=== PATIENT | male | born 1945 | race Caucasian/White ===

== ENCOUNTER 2024-04-18 08:48 | Outpatient (RCR) | payer MEDICARE, SELFPAY | END 2024-04-29 23:59 | disposition home or self-care (01) | LOC: SCTC 08:48 | PROVIDERS: PCP Nurse Practitioner Family; Referring Provider Nurse Practitioner Family; Visit Provider Radiology Therapeutic Radiology | DX: Z51.11 Encounter for antineoplastic chemotherapy (principal); C61 Malignant neoplasm of prostate; C79.51 Secondary malignant neoplasm of bone; N28.89 Other specified disorders of kidney and ureter | CPT/HCPCS: 36591; 96402; 99424; 99425; J9217 ==

== ENCOUNTER → 2024-04-21 | Outpatient (BNVA) | payer MEDICARE, SELFPAY | END | disposition home or self-care (01) | PROVIDERS: PCP Nurse Practitioner Family; Referring Provider Nurse Practitioner Family; Visit Provider Nurse Practitioner Family | DX: C61 Malignant neoplasm of prostate (principal); Z01.810 Encounter for preprocedural cardiovascular examination ==

== ENCOUNTER → 2024-05-02 | Outpatient (BNVA) | payer MEDICARE, SELFPAY | END | disposition home or self-care (01) | PROVIDERS: PCP Nurse Practitioner Family; Referring Provider Nurse Practitioner Family; Visit Provider Urology | DX: N35.919 Unspecified urethral stricture, male, unspecified site (principal); N32.89 Other specified disorders of bladder; C61 Malignant neoplasm of prostate; C64.2 Malignant neoplasm of left kidney, except renal pelvis | CPT/HCPCS: 52000; 81003; 96372; 99211; A4217; A4649; C1894; J3260; A9270; G0463 ==

== ENCOUNTER → 2024-05-15 | Outpatient (BNVA) | payer MEDICARE, SELFPAY | END | disposition home or self-care (01) | PROVIDERS: PCP Nurse Practitioner Family; Referring Provider Nurse Practitioner Family; Visit Provider Nurse Practitioner Family | DX: C61 Malignant neoplasm of prostate (principal); C64.9 Malignant neoplasm of unspecified kidney, except renal pelvis; R33.9 Retention of urine, unspecified; Z09 Encounter for follow-up examination after completed treatment for conditions other than malignant neoplasm ==

== ENCOUNTER → 2024-06-29 | Outpatient (BNVA) | payer MEDICARE, SELFPAY | END | disposition home or self-care (01) | PROVIDERS: PCP Nurse Practitioner Family; Referring Provider Nurse Practitioner Family; Visit Provider Nurse Practitioner Family | DX: C61 Malignant neoplasm of prostate (principal) ==

== ENCOUNTER 2024-07-27 08:54 | Outpatient (RCR) | payer MEDICARE, SELFPAY ==
--- NOTE | 2024-07-05 10:09 | CTCFLWUP_ITS ---
[facility] [address] [place], [place] [address] FOLLOW-UP NOTE Date: 07/04/2024 MR#: [id number] Name: JOHN CARTWRIGHT : Dx: C61 Malignant neoplasm of prostate Identification. Patient with prostate CA, with elevated PSA of 41 on 01/06/2024 with biopsy 03/13/2024 revealing group 4 and group 5 involving both right and left portion of the prostate. Bone scan 03/16/2024 showed extensive metastatic disease involving cervical thoracic lumbar spine pelvic bones. Patient now seeing Dr. Shefali Benoit who reportedly is ordering MRI and following him for his prostate cancer. Had left nephrectomy performed at [facility]. By Dr. 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 3 lymph nodes negative for renal cell CA. [id number]. No adjuvant therapy recommended. Patient was started on Casodex to prevent a flare reaction and Lupron injections was initiated 04/03/2024. Patient's PSA 06/29/2024 0.2 A#!. Prostate CA group 4 and 5 biopsy 03/13/2024 with PSA 41 and widespread bony mets. A#2. Excellent response to 1 injection of ADT Lupron, preceded by Casodex to prevent flare reaction. Patient also has no pain. PSA has dropped to 0.2 most recently. A#3. Recommend patient see Dr. Willis for second-generation antiandrogen and Xgeva along with Lupron. Referral made. A#4. Left nephrectomy stage I grade 2 [id number] performed at [facility] by Dr. Portillo from [facility] no adjuvant therapy recommended. A#5. Patient stated that Dr. Shefali Benoit now following patient for prostate cancer and recommended continuation with hormone manipulation at the local cancer treatment center. MRI of the spine pelvis reportedly has been ordered and pending. A#6. I will see patient again in 2 months time Electronically signed by: Scott Guardado M.D. 07/05/2024 10:07 AM
--- NOTE | 2024-07-27 18:28 | CTCCONSULT_ITS ---
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 patient is doing well. He took casodex for about a month before receiving Lupron. His back pain is resolved . He is very concerned for his urinary symptoms. OTHER MEDICAL HISTORY/CONDITIONS: PROSTATE CANCER CLEAR CELL RENAL CARCINOMA LEFT KIDNEY NEPHRECTOMY LEFT?NEPHRECTOMY?05/04/24?[facility] FAMILY HISTORY: Father:?DENIES?FATHER?CARDIAC?ISSUES Mother:?DENIES Sibling:?DENIES Children:?DENIES Cancer History:?PROSTATE CANCER, HX CLEAR CELL RENAL CARCINOMA Patient?denies?family?cancer?history. SOCIAL HISTORY: Occupational?History:?RETIRED?[employer] Education?Level:?Completed High School Marital?Status:? Tobacco?Pack?per?Day:?0 Tobacco?Use?Years:?30 Tobacco Use:?STOPPED SMOKING 45 YEARS AGO ETOH Use:?OCCASIONAL BEER EVERY 6 MONTHS Drug?Note:?DENIES Social History Note:?LIVES WITH DAUGHTER MEDICATIONS: 1. Casodex - 50 mg 1 tab Daily 2. Casodex - 50 mg Daily 3. traMADol - 50 mg 1 tab q6 4. Xtandi - 80 mg 2 tab 2 tabs Daily Medications Last Reconciled by January Melgar MD on 07/27/2024 ALLERGIES: No Known Allergies REVIEW OF SYSTEMS: A complete 14-point review of systems was performed and is negative except as noted in interval history. PHYSICAL EXAMINATION: VITAL SIGNS: Temperature?97.8, B/P?104/73, Height?69?inches, Oxygen?Saturation?98% Weight?218?lbs (Change?since?07/05/24:?0?lbs) PAIN: 0 - No pain ECOG Performance Status: 0 - Asymptomatic and fully active GENERAL APPEARANCE: Appears well, in no apparent distress, appropriately interactive. HEENT: Normocephalic, no temporal wasting, normal conjunctiva, no scleral icterus, normal hearing, lips without lesions, neck normal range of motion. CARDIOVASCULAR: Not assessed. PULMONARY: Normal respiratory effort, no respiratory distress or use of accessory muscles, speaking in full sentences, no tachypnea. EXTREMITIES: No pedal edema or cyanosis. SKIN: Normal skin appearance. NEUROLOGIC: Alert and oriented x4. PSHYCHIATRIC: Appropriate affect, mood normal, behavior normal, intact thought and speech. LABORATORY DATA: I have personally reviewed and interpreted each of the patient?s relevant lab tests, abnormal findings are below: Date ASSESSMENT/PLAN: Metastatic prostatic cancer Stage 4 for prostatic cancer PSA from 41 to less than 1 Cont Lupron Xtandi 160 mg daily Calcium and vit [id number] zometa once cleared by dentist ORDERS: Cbc,cmp,psa RETURN TO CLINIC: 2 months BILLING AND COMPLIANCE: I reviewed external records from providers outside my specialty as summarized above. I spent a total of 50 minutes on this patient?s care on the day of their visit excluding time spent related to any billed procedures. This time includes time spent with the patient as well as time spent documenting in the medical record, reviewing patients records and tests, obtaining history, placing orders, communicating with other healthcare professionals, counseling the patient, family or caregiver, and/or care coordination for the diagnoses above. Electronically Signed by: {Object.Sanct_ID*[email or web address]@M}, {Object.Sanct_ID*PnP.Suffix@U} D: {Object.Sanct_Date} T: {Object.Sanct_Time} CC: PCP: Referring: [facility] Senior Credit OfficerTraci This document was completed utilizing speech recognition software. Grammatical errors, random word insertions, pronoun errors, and incomplete sentences are an occasional consequence of this system due to software limitations, ambient noise, and hardware issues. Any formal questions or concerns about the content, text or information contained within the body of this dictation should be directly addressed to the provider for clarification.
== END 2024-07-28 23:59 | disposition home or self-care (01) ==
LOC: SCTC 08:54
PROVIDERS: PCP Nurse Practitioner Family; Referring Provider Nurse Practitioner Family; Visit Provider Internal Medicine Hematology & Oncology
DX: Z51.11 Encounter for antineoplastic chemotherapy (principal); C61 Malignant neoplasm of prostate; C79.51 Secondary malignant neoplasm of bone; C64.2 Malignant neoplasm of left kidney, except renal pelvis; Z90.5 Acquired absence of kidney; Z79.818 Long term (current) use of other agents affecting estrogen receptors and estrogen levels
CPT/HCPCS: 96402; 99211; 99212; 99213; J9217; G0463

== ENCOUNTER → 2024-08-10 | Outpatient (CLI) | payer MEDICARE, SELFPAY ==
--- NOTE | 2024-08-10 15:21 | XR_ITS ---
Examination: MRI abdomen, without contrast Date and time of exam: August 10, 2024 1611 hrs. Indications: Malignant neoplasm left kidney post surgery 2 months ago, restaging Technique: Multiple axial sagittal and coronal images of the abdomen have been obtained with the Siemens high-resolution 1.5 Kaley MRI scanner. Images obtained include T2-weighted fat-suppressed sagittal sections, TR 3500, TE 46, T2 weighted coronal fat suppressed images, TR 3050, TE 84, T2-weighted transverse fat suppressed images, TR 3260, TE 63, proton density transverse images, TR 4720 TE 46, and T1 weighted coronal images, TR 560, TE 13. Findings: No focal liver or splenic lesions Multiple right renal cysts, the largest in the upper pole 8.3 cm No solid right renal mass lesion is noted on this noncontrast study No ascites Aorta normal size Adequate marrow signal Impression: Absent left kidney No retroperitoneal lymphadenopathy No ascites Multiple right renal cysts
== END | disposition home or self-care (01) ==
LOC: SMRI 14:59
PROVIDERS: PCP Urology; Referring Provider Urology; Visit Provider Urology
DX: N28.1 Cyst of kidney, acquired (principal); Z90.5 Acquired absence of kidney
CPT/HCPCS: 74181

== ENCOUNTER 2024-10-04 11:21 | Outpatient (RCR) | payer MEDICARE, SELFPAY ==
--- NOTE | 2024-10-03 15:27 | CTCFLWUP_ITS ---
[facility] Mcc[facility] [address] [place], [place] [address] FOLLOW-UP NOTE Date: 10/03/2024 MR#: [id number] Name: JOHN CARTWRIGHT : 1945 Dx: C61 Malignant neoplasm of prostate Identification. Patient with prostate CA group 4 and 5 biopsy 03/13/2024 with PSA 41 widespread bone mets. Bone scan 03/16/[address]. [address] abdomen pelvis 03/16/2024 2 mm pulmonary nodule with solid mass central left kidney 5.6 x 5.8 cm consistent with renal neoplasm. Abdominal MRI 04-23 solid mass upper left kidney 6 x 6 x 5.6 cm. Left nephrectomy stage I grade 2 [id number] performed in [facility] 05/04/[address] Portillo at [facility] no adjuvant therapy recommended. A good response with 1 injection of ADT Lupron preceded by Casodex to prevent flare with PSA dropping to 0.2 on 06/30/2024 Currently receiving Xtandi along with Lupron, and receiving calcium and vitamin D under Dr. Willis's direction. Awaiting dental clearance before Zometa will be considered. As patient is reasonably comfortable not needing any pain meds or radiation therapy I will be in the sideline while patient receiving systemic therapy under Dr. Willis's direction. Cc: Dennis Parker MD Electronically signed by: Scott Guardado M.D. 10/03/2024 3:25 PM
== END 2024-10-28 23:59 | disposition home or self-care (01) ==
LOC: SCTC 11:21
PROVIDERS: PCP Urology; Referring Provider Urology; Visit Provider Nurse Practitioner Family
DX: C61 Malignant neoplasm of prostate (principal); C79.51 Secondary malignant neoplasm of bone; C64.2 Malignant neoplasm of left kidney, except renal pelvis; Z79.818 Long term (current) use of other agents affecting estrogen receptors and estrogen levels; Z90.5 Acquired absence of kidney
CPT/HCPCS: 99212; G0463

== ENCOUNTER → 2024-10-31 | Outpatient (CLI) | payer MEDICARE, SELFPAY ==
[2024-10-31 09:51] LABS: Basophils # (Auto) 0.1 Thou/mm3 (0.0-0.2); Basophils % (Auto) 1 % (0-2.5); Eosinophils # (Auto) 0.4 Thou/mm3 (0.0-0.5); Eosinophils % (Auto) 5 % (0-10); Hematocrit 37.6 % (41.0-53.0); Hemoglobin 13.3 g/dL (13.5-16.0); Immature Granulocytes % (Auto) 1 % (0-0); Lymphocytes # (Auto) 1.6 Thou/mm3 (1.0-4.8); Lymphocytes % (Auto) 20 % (10-50); Mean Corpuscular HGB Conc 35.4 g/dl (31.0-37.0); Mean Corpuscular Hemoglobin 28.5 pg (25.0-35.0); Mean Corpuscular Volume 81 fL (80-100); Monocytes # (Auto) 0.7 Thou/mm3 (0.0-0.8); Monocytes % (Auto) 9 % (0-12); Neutrophils # (Auto) 5.2 Thou/mm3 (1.8-7.7); Neutrophils % (Auto) 65 % (37-80); Nucleated Red Blood Cell % 0 /100 WBC (0); Platelet Count 244 Thou/mm3 (140-440); RDW Standard Deviation 41.9 fL (35.1-43.9); Red Blood Count 4.66 Miln/mm3 (4.50-5.90)
[2024-10-31 10:21] LABS: Alanine Aminotransferase 7 U/L (10-49); Albumin, Serum 4.4 gm/dL (3.4-4.8); Albumin/Globulin Ratio 1.6 (1.2-2.2); Alkaline Phosphatase 63 U/L (46-116); Anion Gap 11 (7-16); Aspartate Amino Transferase 16 U/L (0-34); BUN/Creatinine Ratio 10 Ratio (12-20); Bilirubin,Total 0.6 mg/dL (0.3-1.2); Blood Urea Nitrogen 20 mg/dL (9-23); Calcium 10.4 mg/dL (8.3-10.6); Calcium (Corrected) 10.4 mg/dL (8.5-10.1); Carbon Dioxide 23.6 mMol/L (20.0-31.0); Chloride 104 mMol/L (98-107); Globulin 2.7 gm/dL (2.3-3.5); Glucose 100 mg/dL (74-106); Osmolality,Calculated 280 (275-295); Potassium 5.2 mMol/L (3.4-5.1); Sodium 139 mMol/L (136-145); Total Protein 7.1 gm/dL (5.7-8.2); eGFR 34 See Note
[2024-10-31 11:18] LABS: Prostate Specific Antigen < 0.10 ng/mL (0-4.00)
== END | disposition home or self-care (01) ==
PROVIDERS: Referring Provider Nurse Practitioner Family; Visit Provider Nurse Practitioner Family
DX: C61 Malignant neoplasm of prostate (principal)
CPT/HCPCS: 36415; 80053; 84153; 85025

== ENCOUNTER 2024-11-08 11:24 | Outpatient (RCR) | payer MEDICARE, SELFPAY | END 2024-11-27 23:59 | disposition home or self-care (01) | LOC: SCTC 11:24 | PROVIDERS: Referring Provider Nurse Practitioner Family; Visit Provider Nurse Practitioner Family | DX: Z51.11 Encounter for antineoplastic chemotherapy (principal); C61 Malignant neoplasm of prostate; C64.2 Malignant neoplasm of left kidney, except renal pelvis; Z90.5 Acquired absence of kidney | CPT/HCPCS: 96402; 99212; J9217; G0463 ==

== ENCOUNTER → 2024-11-21 | Outpatient (CLI) | payer MEDICARE, SELFPAY ==
--- NOTE | 2024-11-21 09:45 | XR_ITS ---
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
--- NOTE | 2024-11-21 09:45 | XR_ITS ---
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
--- NOTE | 2024-11-21 09:45 | XR_ITS ---
Examination: Lumbar spine, 5 views Technique: Lumbar spine AP, lateral, coned lateral lower lumbar spine, bilateral obliques 5 views Exam date and time: November 21, 2024 1001 hours INDICATIONS: Lower back pain one week, diagnosis malignant neoplasm prostate FINDINGS: Moderate osteopenia Sclerotic foci L4-L5 as well as in the sacrum Numerous sclerotic foci in the iliac bones and left hip Moderate disc narrowing L5-S1 IMPRESSION: Widespread osteoblastic metastatic disease No fracture Moderate degenerative disc disease L5-S1
== END | disposition home or self-care (01) ==
PROVIDERS: PCP Urology; Referring Provider Nurse Practitioner Family; Visit Provider Nurse Practitioner Family
DX: C79.51 Secondary malignant neoplasm of bone (principal); C61 Malignant neoplasm of prostate; M51.379 Other intervertebral disc degeneration, lumbosacral region without mention of lumbar back pain or lower extremity pain; M51.34 Other intervertebral disc degeneration, thoracic region
CPT/HCPCS: 72072; 72110; 73522

== ENCOUNTER → 2024-12-14 | Outpatient (CLI) | payer MEDICARE, SELFPAY ==
[2024-12-14 10:13] LABS: Alanine Aminotransferase < 7 U/L (10-49); Albumin, Serum 4.1 gm/dL (3.4-4.8); Albumin/Globulin Ratio 1.4 (1.2-2.2); Alkaline Phosphatase 68 U/L (46-116); Anion Gap 12 (7-16); Aspartate Amino Transferase 13 U/L (0-34); BUN/Creatinine Ratio 12 Ratio (12-20); Bilirubin,Total 0.6 mg/dL (0.3-1.2); Blood Urea Nitrogen 23 mg/dL (9-23); Calcium 9.6 mg/dL (8.3-10.6); Calcium (Corrected) 9.6 mg/dL (8.5-10.1); Carbon Dioxide 23.2 mMol/L (20.0-31.0); Chloride 109 mMol/L (98-107); Creatinine (Component) 2.0 mg/dL (0.6-1.3); Globulin 2.9 gm/dL (2.3-3.5); Glucose 111 mg/dL (74-106); Osmolality,Calculated 291 (275-295); Potassium 4.4 mMol/L (3.4-5.1); Sodium 144 mMol/L (136-145); Total Protein 7.0 gm/dL (5.7-8.2); eGFR 34 See Note
== END | disposition home or self-care (01) ==
LOC: COPL 08:22
PROVIDERS: PCP Urology; Referring Provider Nurse Practitioner Family; Visit Provider Nurse Practitioner Family
DX: C61 Malignant neoplasm of prostate (principal)
CPT/HCPCS: 36415; 80053

== ENCOUNTER → 2024-12-15 | Outpatient (CLI) | payer MEDICARE, SELFPAY ==
--- NOTE | 2024-12-15 07:45 | XR_ITS ---
Examination: MRI thoracic spine without contrast. Date and time of exam: December 15, 2024 0804 hours INDICATIONS: Diagnosis malignant neoplasm prostate, back pain months Technique: Multiple sagittal and axial images of the thoracic spine have been obtained. T1 weighted localizer, sagittal T2 weighted images, TR 30-50, TE 148, T1 weighted sagittal images, TR 650, TE 14, T2-weighted transverse images, TR 6770, TE 142 Findings: Abnormal signal involving the T7, T8, T9, T10 vertebral bodies consistent with osseous metastatic disease No epidural tumor impinging upon the thoracic cord No localized enlargement thoracic cord Mild to moderate diffuse thoracic disc narrowing Diffuse thoracic disc desiccation Impression: Osseous metastatic disease involving T7, T8, T9, T10 No epidural tumor impinging upon the thoracic cord
--- NOTE | 2024-12-15 08:30 | XR_ITS ---
Examination: MRI lumbar spine without contrast Date and time of exam: December 15, 2024 0833 hours INDICATIONS: Back pain 2 weeks, diagnosis prostate cancer Technique: Multiple MRI axial and sagittal sections lumbar spine. Sagittal T2-weighted images, TR 3500, TE 118 T1 weighted transverse sections, TR 688 T8.5, T2-weighted sagittal sections T1 weighted sagittal sections TR 621, TE 30 T2 axial sections, TR 4, 190, TE 84. Findings: Focal areas of abnormal signal involving L1, L3, L4, first and second and third sacral segments Diffuse lumbar disc desiccation. No epidural tumor impinging upon the conus medullaris or cauda equina Axial images demonstrate focal involvement with osseous metastatic disease iliac bones IMPRESSION: Widespread osseous metastatic disease No epidural tumor impinging upon the conus medullaris or cauda equina
== END | disposition home or self-care (01) ==
PROVIDERS: PCP Urology; Referring Provider Nurse Practitioner Family; Visit Provider Nurse Practitioner Family
DX: C79.49 Secondary malignant neoplasm of other parts of nervous system (principal); C79.9 Secondary malignant neoplasm of unspecified site; C79.51 Secondary malignant neoplasm of bone; C61 Malignant neoplasm of prostate
CPT/HCPCS: 72146; 72148

== ENCOUNTER 2024-12-18 11:06 | Outpatient (RCR) | payer MEDICARE, SELFPAY | END 2024-12-28 23:59 | disposition home or self-care (01) | LOC: SCTC 11:06 | PROVIDERS: Referring Provider Nurse Practitioner Family; Visit Provider Nurse Practitioner Family | DX: C61 Malignant neoplasm of prostate (principal); C64.2 Malignant neoplasm of left kidney, except renal pelvis; C79.51 Secondary malignant neoplasm of bone; Z90.5 Acquired absence of kidney; Z79.818 Long term (current) use of other agents affecting estrogen receptors and estrogen levels | CPT/HCPCS: 99212; G0463 ==

== ENCOUNTER → 2025-01-30 | Outpatient (BNVA) | payer MEDICARE, SELFPAY | END | disposition home or self-care (01) | PROVIDERS: PCP Nurse Practitioner Primary Care; Referring Provider Nurse Practitioner Primary Care; Visit Provider Nurse Practitioner Primary Care | DX: J40 Bronchitis, not specified as acute or chronic (principal) | CPT/HCPCS: 87804; 87811; 99213 ==

== ENCOUNTER → 2025-02-01 | Outpatient (CLI) | payer MEDICARE, SELFPAY ==
[2025-01-24 10:42] LABS: Basophils # (Auto) 0.1 Thou/mm3 (0.0-0.2); Basophils % (Auto) 1 % (0-2.5); Eosinophils # (Auto) 0.4 Thou/mm3 (0.0-0.5); Eosinophils % (Auto) 5 % (0-10); Hematocrit 38.5 % (41.0-53.0); Hemoglobin 13.0 g/dL (13.5-16.0); Immature Granulocytes Auto 0.07 Thou/mm3 (0.00-0.00); Lymphocytes # (Auto) 1.7 Thou/mm3 (1.0-4.8); Lymphocytes % (Auto) 22 % (10-50); Mean Corpuscular HGB Conc 33.8 g/dl (31.0-37.0); Mean Corpuscular Hemoglobin 28.5 pg (25.0-35.0); Mean Corpuscular Volume 84 fL (80-100); Monocytes # (Auto) 0.7 Thou/mm3 (0.0-0.8); Monocytes % (Auto) 9 % (0-12); Neutrophils # (Auto) 4.8 Thou/mm3 (1.8-7.7); Neutrophils % (Auto) 63 % (37-80); Nucleated Red Blood Cell # 0.00 Thou/mm3 (0.00-0.00); Nucleated Red Blood Cell % 0 /100 WBC (0); Platelet Count 266 Thou/mm3 (140-440); RDW Standard Deviation 41.9 fL (35.1-43.9); Red Blood Count 4.56 Miln/mm3 (4.50-5.90); White Blood Count 7.7 Thou/mm3 (3.8-10.6)
[2025-01-24 11:32] LABS: Alanine Aminotransferase < 7 U/L (10-49); Albumin, Serum 4.0 gm/dL (3.4-4.8); Albumin/Globulin Ratio 1.7 (1.2-2.2); Alkaline Phosphatase 70 U/L (46-116); Anion Gap 11 (7-16); Aspartate Amino Transferase 13 U/L (0-34); BUN/Creatinine Ratio 12 Ratio (12-20); Bilirubin,Total 0.4 mg/dL (0.3-1.2); Blood Urea Nitrogen 24 mg/dL (9-23); Calcium 10.3 mg/dL (8.3-10.6); Calcium (Corrected) 10.3 mg/dL (8.5-10.1); Carbon Dioxide 24.8 mMol/L (20.0-31.0); Chloride 106 mMol/L (98-107); Creatinine (Component) 2.0 mg/dL (0.6-1.3); Globulin 2.4 gm/dL (2.3-3.5); Glucose 91 mg/dL (74-106); Osmolality,Calculated 287 (275-295); Potassium 4.8 mMol/L (3.4-5.1); Sodium 142 mMol/L (136-145); Total Protein 6.4 gm/dL (5.7-8.2); eGFR 34 See Note
--- NOTE | 2025-02-01 | XR_ITS ---
Examination: CT thoracic spine, without contrast. 2-D sagittal reconstructions. 2-D coronal reconstructions. 3-D reconstructions. Date and time of exam:February 01, 2025 0914 hours INDICATIONS: Diagnosis malignant neoplasm prostate, upper back pain 3 weeks CTDI: vol (mGy):32.6 DLP: (mGycm):1255 Technique: Multiple 1.25 mm axial sections of the thoracic spine without intravenous contrast have been obtained. 2-D sagittal and coronal reconstructions have been obtained. 3-D reconstructions have been obtained. Low dose protocols were performed. One or more of the following dose reduction techniques were used; automated exposure control, adjustment of the mA and/or KV according to patient size, use of iterative reconstruction technique. 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
--- NOTE | 2025-02-01 08:30 | XR_ITS ---
Examination: CT lumbar spine, without contrast. 2-D sagittal reconstructions. 2-D coronal reconstructions. 3-D reconstructions. Date and time of exam:February 01, 2025 0914 hours INDICATIONS: Diagnosis malignant neoplasm prostate, back pain 3 weeks CTDI: vol (mGy):33.6 DLP: (mGycm):1025 Technique: Multiple 1.25 mm axial sections of the lumbar spine without intravenous contrast have been obtained. 2-D sagittal and coronal reconstructions have been obtained. 3-D reconstructions have been obtained. Low dose protocols were performed. One or more of the following dose reduction techniques were used; automated exposure control, adjustment of the mA and/or KV according to patient size, use of iterative reconstruction technique. Findings: Extensive foci of osteoblastic metastatic disease involving all sacral segments, L5, L4, L3, L1, T12 No pathologic fracture L4-L5 3 mm central lumbar disc bulge IMPRESSION: Widespread osteoblastic metastatic disease, consider repeat MRI lumbar spine post intravenous contrast follow-up
== END | disposition home or self-care (01) ==
LOC: CCTX 08:49
PROVIDERS: PCP Nurse Practitioner Family; Referring Provider Nurse Practitioner Family; Visit Provider Nurse Practitioner Family
DX: C79.51 Secondary malignant neoplasm of bone (principal); C79.9 Secondary malignant neoplasm of unspecified site; C61 Malignant neoplasm of prostate
CPT/HCPCS: 36415; 72128; 72131; 80053; 85025

== ENCOUNTER → 2025-02-12 | Outpatient (CLI) | payer MEDICARE, SELFPAY ==
[2025-02-12 08:53] LABS: Misc Send Out* See Sep Rpt
[2025-02-12 09:59] LABS: Basophils # (Auto) 0.1 Thou/mm3 (0.0-0.2); Basophils % (Auto) 1 % (0-2.5); Eosinophils # (Auto) 0.3 Thou/mm3 (0.0-0.5); Eosinophils % (Auto) 3 % (0-10); Hematocrit 38.7 % (41.0-53.0); Hemoglobin 13.1 g/dL (13.5-16.0); Immature Granulocytes Auto 0.07 Thou/mm3 (0.00-0.00); Lymphocytes # (Auto) 1.2 Thou/mm3 (1.0-4.8); Lymphocytes % (Auto) 16 % (10-50); Mean Corpuscular HGB Conc 33.9 g/dl (31.0-37.0); Mean Corpuscular Hemoglobin 28.7 pg (25.0-35.0); Mean Corpuscular Volume 85 fL (80-100); Monocytes # (Auto) 0.5 Thou/mm3 (0.0-0.8); Monocytes % (Auto) 6 % (0-12); Neutrophils # (Auto) 5.8 Thou/mm3 (1.8-7.7); Neutrophils % (Auto) 73 % (37-80); Nucleated Red Blood Cell # 0.00 Thou/mm3 (0.00-0.00); Nucleated Red Blood Cell % 0 /100 WBC (0); Platelet Count 271 Thou/mm3 (140-440); RDW Standard Deviation 41.7 fL (35.1-43.9); Red Blood Count 4.56 Miln/mm3 (4.50-5.90); White Blood Count 7.9 Thou/mm3 (3.8-10.6)
[2025-02-12 10:16] LABS: Prostate Specific Antigen < 0.10 ng/mL (0-4.00)
[2025-02-12 10:29] LABS: Alanine Aminotransferase < 7 U/L (10-49); Albumin, Serum 4.2 gm/dL (3.4-4.8); Albumin/Globulin Ratio 1.5 (1.2-2.2); Alkaline Phosphatase 62 U/L (46-116); Anion Gap 11 (7-16); Aspartate Amino Transferase 13 U/L (0-34); BUN/Creatinine Ratio 8 Ratio (12-20); Bilirubin,Total 0.8 mg/dL (0.3-1.2); Blood Urea Nitrogen 16 mg/dL (9-23); Calcium 10.1 mg/dL (8.3-10.6); Calcium (Corrected) 10.1 mg/dL (8.5-10.1); Carbon Dioxide 24.5 mMol/L (20.0-31.0); Chloride 106 mMol/L (98-107); Creatinine (Component) 1.9 mg/dL (0.6-1.3); Globulin 2.8 gm/dL (2.3-3.5); Glucose 100 mg/dL (74-106); Osmolality,Calculated 282 (275-295); Potassium 4.3 mMol/L (3.4-5.1); Sodium 141 mMol/L (136-145); Total Protein 7.0 gm/dL (5.7-8.2); eGFR 36 See Note
== END | disposition home or self-care (01) ==
LOC: SCTO 08:09
PROVIDERS: PCP Nurse Practitioner Family; Referring Provider Nurse Practitioner Family; Visit Provider Nurse Practitioner Family
DX: C61 Malignant neoplasm of prostate (principal); C79.51 Secondary malignant neoplasm of bone
CPT/HCPCS: 36415; 80053; 84153; 85025

== ENCOUNTER 2025-02-19 10:06 | Outpatient (RCR) | payer MEDICARE, SELFPAY ==
--- NOTE | 2025-02-25 22:26 | CTCFLWUP_ITS ---
Patient: DELGADO CARTWRIGHT : 1945 Page 3 of 5 FOLLOW UP NOTE DATE OF SERVICE: 02/19/2025 NAME: DELGADO CARTWRIGHT ACCOUNT: [id number] : 1945 AGE: 79 INTERVAL HISTORY: Delgado, a 79yo male with metastatic prostate cancer (stage 4) is for follow up. 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 patient is doing well. He took casodex for about a month before receiving Lupron. His back pain is resolved . 02/01/2025 6 12/15/2024 MRIWidespread osseous metastatic disease No epidural tumor impinging upon the conus medullaris or cauda equine 11/01/2024 x-rayWidespread osteoblastic disease involving pelvis and hips No pathologic fracture OTHER MEDICAL HISTORY/CONDITIONS: PROSTATE CANCER CLEAR CELL RENAL CARCINOMA LEFT KIDNEY NEPHRECTOMY LEFT?NEPHRECTOMY?05/04/24?[facility] FAMILY HISTORY: Father:?DENIES?FATHER?CARDIAC?ISSUES Mother:?DENIES Sibling:?DENIES Children:?DENIES Cancer History:?PROSTATE CANCER, HX CLEAR CELL RENAL CARCINOMA Patient?denies?family?cancer?history. SOCIAL HISTORY: Occupational?History:?RETIRED?[employer] Education?Level:?Completed High School Marital?Status:? Tobacco?Pack?per?Day:?0 Tobacco?Use?Years:?30 Tobacco Use:?STOPPED SMOKING 45 YEARS AGO ETOH Use:?OCCASIONAL BEER EVERY 6 MONTHS Drug?Note:?DENIES Social History Note:?LIVES WITH DAUGHTER MEDICATIONS: 1. Xtandi - 80 mg 2 tab 2 tabs Daily Medications Last Reconciled by Jyotsna Wiseman MD on 02/19/2025 ALLERGIES: No Known Allergies REVIEW OF SYSTEMS: A complete 14-point review of systems was performed and is negative except as noted in interval history. PHYSICAL EXAMINATION: VITAL SIGNS: Temperature?96.9, B/P?124/73, Oxygen?Saturation?98% Weight?218?lbs (Change?since?02/06/25:?-3.2?lbs) PAIN: 0 - No pain Not done, visit with telemedicine LABORATORY DATA: I have personally reviewed and interpreted each of the patient?s relevant lab tests, abnormal findings are below: Date 01/24/25 02/12/25 ??WHITE?BLOOD?COUNT?(Thou/mm3) 7.7 7.9 ??RED?BLOOD?COUNT?(Miln/mm3) 4.56 4.56 ??HEMOGLOBIN?(gm/dl) 13.0?L 13.1?L ??HEMATOCRIT?(%) 38.5?L 38.7?L ??PLATELET?COUNT?(Thou/mm3) 266 271 ??NEUTROPHILS?%,?AUTO?(%) 63 73 ??LYMPH?%,?AUTO?(%) 22 16 ??NEUTROPHILS,?AUTO?(Thou/mm3) 4.8 5.8 ??GLUCOSE,RANDOM?(mg/dL) 91 100 ??BLOOD?UREA?NITROGEN?(mg/dL) 24?H 16 ??CREATININE?(mg/dL) 2.00?H 1.90?H ??SODIUM?(mmol/L) 142 141 ??POTASSIUM?(mmol/L) 4.8 4.3 ??CHLORIDE?(mmol/L) 106 106 ??CrCl?(CandG)?(ml/min) 36.08 37.58 ??AST/SGOT?(Unit/L) 13 13 ??ALT/SGPT?(Unit/L) <?7?L <?7?L ??ALKALINE?PHOSPHATASE?(Unit/L) 70 62 ??BILIRUBIN,?TOTAL?(mg/dL) 0.4 0.8 ??PROTEIN?TOTAL?(gm/dl) 6.4 7.0 ??ALBUMIN,?SERUM?(gm/dl) 4.0 4.2 ??GLOBULIN?(gm/dl) 2.4 2.8 ??ALBUMIN/GLOBULIN?RATIO 1.7 1.5 ??CALCIUM,?SERUM?(mg/dL) 10.3 10.1 ??CALCIUM?SERUM?(CORRECTED)?(mg/dL) 10.3?H 10.1 ASSESSMENT/PLAN: Delgado Cartwright, 80-year-old male with history of metastatic prostate cancer stage 4 and left nephrectomy for stage 1 renal cancer, presenting for follow-up. Metastatic Prostate Cancer, Stage 4 Assessment: Patient has a history of metastatic prostate cancer, stage 4. Previously, PSA is less than 0.10. Patient is currently on Lupron and Xtandi for management of prostate cancer. Patient complains of lower back pain, specifically in the lower mid-back area. Given the patient's history of metast atic prostate cancer and previous imaging showing extensive osseous metastatic disease, further evaluation is warranted to assess for possible progression or new metastatic lesions. Plan: - Continue Lupron(started in 02/2024) - Continue Xtandi 160 mg PO daily (started 08/18/2024) - Continue calcium and vitamin D supplementation - Start Zometa once dental clearance is obtained History of Left Nephrectomy for Renal Cancer Assessment: Patient has a history of left nephrectomy for stage 1, grade 2, performed on May 11, 2024, by Dr. Portillo at [facility]. No adjuvant therapy was recommended post-surgery. Plan: - Continue monitoring as part of overall cancer follow-up, keep f/u with [facility], next follow up is 12/17 Restaging scan ORDERS: Order # Description [id number] Initial PET/CT of Skull to Mid-Thigh [id number] Comprehensive Metabolic Panel - 12 + CBC with Auto Diff + PSA RETURN TO CLINIC: I reviewed the diagnosis, prognosis, and recommended treatment/procedure options with the patient (and/or their legal real estate representative), including the potential benefits, risks, side effects and alternative therapies. We also discussed the option of no treatment and the possibility of clinical trial participation, if applicable. All questions were addressed, and they demonstrated understanding. They provided informed consent to proceed with the proposed plan of care. BILLING AND COMPLIANCE: I reviewed external records from providers outside my specialty as summarized above. I spent a total of 50 minutes on this patient?s care on the day of their visit excluding time spent related to any billed procedures. This time includes time spent with the patient as well as time spent documenting in the medical record, reviewing patients records and tests, obtaining history, placing orders, communicating with other healthcare professionals, counseling the patient, family or caregiver, and/or care coordination for the diagnoses above. Electronically Signed by: Jaylon Willis MD T: 10:24 PM CC: PCP: [facility] Traci Macdonald Referring: [facility] Traci Macdonald This document was completed utilizing speech recognition software. Grammatical errors, random word insertions, pronoun errors, and incomplete sentences are an occasional consequence of this system due to software limitations, ambient noise, and hardware issues. Any formal questions or concerns about the content, text or information contained within the body of this dictation should be directly addressed to the provider for clarification.
== END 2025-02-27 23:59 | disposition home or self-care (01) ==
LOC: SCTC 10:06
PROVIDERS: PCP Nurse Practitioner Family; Referring Provider Nurse Practitioner Family; Visit Provider Internal Medicine Hematology & Oncology
DX: Z51.11 Encounter for antineoplastic chemotherapy (principal); C61 Malignant neoplasm of prostate; C79.51 Secondary malignant neoplasm of bone; C64.2 Malignant neoplasm of left kidney, except renal pelvis; Z90.5 Acquired absence of kidney
CPT/HCPCS: 96402; 99212; J3489; J9217; G0463

== ENCOUNTER → 2025-04-06 | Outpatient (CLI) | payer MEDICARE, SELFPAY ==
[2025-04-06 10:37] LABS: Basophils # (Auto) 0.1 Thou/mm3 (0.0-0.2); Basophils % (Auto) 1 % (0-2.5); Eosinophils # (Auto) 0.3 Thou/mm3 (0.0-0.5); Eosinophils % (Auto) 4 % (0-10); Hematocrit 38.0 % (41.0-53.0); Hemoglobin 12.7 g/dL (13.5-16.0); Immature Granulocytes Auto 0.10 Thou/mm3 (0.00-0.00); Lymphocytes # (Auto) 1.4 Thou/mm3 (1.0-4.8); Lymphocytes % (Auto) 18 % (10-50); Mean Corpuscular HGB Conc 33.4 g/dl (31.0-37.0); Mean Corpuscular Hemoglobin 28.3 pg (25.0-35.0); Mean Corpuscular Volume 85 fL (80-100); Monocytes # (Auto) 0.6 Thou/mm3 (0.0-0.8); Monocytes % (Auto) 8 % (0-12); Neutrophils # (Auto) 5.2 Thou/mm3 (1.8-7.7); Neutrophils % (Auto) 68 % (37-80); Nucleated Red Blood Cell # 0.00 Thou/mm3 (0.00-0.00); Nucleated Red Blood Cell % 0 /100 WBC (0); Platelet Count 255 Thou/mm3 (140-440); RDW Standard Deviation 43.1 fL (35.1-43.9); Red Blood Count 4.49 Miln/mm3 (4.50-5.90); White Blood Count 7.7 Thou/mm3 (3.8-10.6)
[2025-04-06 10:54] LABS: Alanine Aminotransferase 8 U/L (10-49); Albumin, Serum 4.2 gm/dL (3.4-4.8); Albumin/Globulin Ratio 1.8 (1.2-2.2); Alkaline Phosphatase 68 U/L (46-116); Anion Gap 9 (7-16); Aspartate Amino Transferase 13 U/L (0-34); BUN/Creatinine Ratio 9 Ratio (12-20); Bilirubin,Total 0.5 mg/dL (0.3-1.2); Blood Urea Nitrogen 16 mg/dL (9-23); Calcium 9.5 mg/dL (8.3-10.6); Calcium (Corrected) 9.5 mg/dL (8.5-10.1); Carbon Dioxide 25.1 mMol/L (20.0-31.0); Chloride 107 mMol/L (98-107); Creatinine (Component) 1.7 mg/dL (0.6-1.3); Globulin 2.4 gm/dL (2.3-3.5); Glucose 101 mg/dL (74-106); Osmolality,Calculated 282 (275-295); Potassium 4.8 mMol/L (3.4-5.1); Sodium 141 mMol/L (136-145); Total Protein 6.6 gm/dL (5.7-8.2); eGFR 41 See Note
== END | disposition home or self-care (01) ==
LOC: SCTO 09:44
PROVIDERS: PCP Nurse Practitioner Family; Referring Provider Internal Medicine Hematology & Oncology; Visit Provider Internal Medicine Hematology & Oncology
DX: C61 Malignant neoplasm of prostate (principal)
CPT/HCPCS: 36415; 80053; 85025

== ENCOUNTER 2025-04-09 13:44 | Outpatient (RCR) | payer MEDICARE, SELFPAY | END 2025-04-29 23:59 | disposition home or self-care (01) | LOC: SCTC 13:44 | PROVIDERS: PCP Nurse Practitioner Family; Referring Provider Nurse Practitioner Family; Visit Provider Internal Medicine Hematology & Oncology | DX: C61 Malignant neoplasm of prostate (principal); C79.51 Secondary malignant neoplasm of bone; Z85.528 Personal history of other malignant neoplasm of kidney; Z90.5 Acquired absence of kidney; Z79.818 Long term (current) use of other agents affecting estrogen receptors and estrogen levels | CPT/HCPCS: 96365; J3489; J7030 ==

== ENCOUNTER 2025-05-15 14:29 | Outpatient (RCR) | payer MEDICARE, SELFPAY | END 2025-05-30 23:59 | disposition home or self-care (01) | LOC: SCTC 14:29 | PROVIDERS: PCP Nurse Practitioner Family; Referring Provider Nurse Practitioner Family; Visit Provider Radiology Therapeutic Radiology | DX: C61 Malignant neoplasm of prostate (principal); C79.51 Secondary malignant neoplasm of bone; C64.2 Malignant neoplasm of left kidney, except renal pelvis; Z90.5 Acquired absence of kidney | CPT/HCPCS: 99212; 99213; G0463 ==